=== PATIENT | female | born 1935 | race African-American/Black ===

== ENCOUNTER 2022-12-19 12:10 | Emergency (ER) | payer MEDICARE, BC ==
[~2022-12-19] VITALS: Ht 160 cm; Wt 63.0 kg
[2022-12-19 12:20] VITALS: TEMP 97.3; O2SAT 98
[2022-12-19] MEDS ORDERED: IBUP-2029 MT (13:26)
[2022-12-19 13:45] VITALS: BP 153/94; PULSE 76; RESP 20
[2022-12-19] MEDS ORDERED: IBUPROFEN 600MG TABLET PO ONE (13:45)
== END 2022-12-19 15:08 | disposition home or self-care (01) ==
LOC: ER 12:10
DX: S90.31XA Contusion of right foot, initial encounter (principal); E78.00 Pure hypercholesterolemia, unspecified; I10 Essential (primary) hypertension; Z86.73 Personal history of transient ischemic attack (TIA), and cerebral infarction without residual deficits; X58.XXXA Exposure to other specified factors, initial encounter; Y93.89 Activity, other specified; Y92.89 Other specified places as the place of occurrence of the external cause; Y99.8 Other external cause status
CPT/HCPCS: 99282

== ENCOUNTER 2023-11-24 14:33 | Inpatient (IN) | payer MEDICARE, BC ==
[~2023-11-24] VITALS: Ht 162.6 cm; Wt 76.4 kg
[~2023-11-24 14:33] MED LIST: IBUP-2029 MT
[2023-11-24 14:41] VITALS: O2SAT 99
[2023-11-24] MEDS: SODIUM CHLORIDE 0.9% 1,000 ML IV ONE (15:08)
[2023-11-24 15:17] LABS: BASOPHILS % 0.3 % (0.0-2.0); DIFFERENTIAL COMMENT 0; EOSINOPHILS % 1.5 % (0.0-5.0); HEMATOCRIT. 38.6 % (36.0-48.0); HEMOGLOBIN. 12.5 g/dL (12.0-16.0); LYMPHOCYTES % 22.3 % (20.0-50.0); MEAN CORPUSCULAR HEMOGLOBIN 23.7 pg (28.0-32.0); MEAN CORPUSCULAR HGB CONC 32.4 g/dL (31.0-37.0); MEAN PLATELET VOLUME 8.3 fl (7.4-10.4); MONOCYTES % 11.6 % (2.0-8.0); NEUTROPHILS % 64.3 % (40.0-76.0); PLATELET 313 x1000/uL (130-400); RED BLOOD CELL COUNT 5.29 mill/uL (4.2-5.4); RED CELL DISTRIBUTION WIDTH 17.2 % (11.6-14.6); WHITE BLOOD COUNT 6.5 x1000/uL (4.5-11.0)
[2023-11-24 15:25] LABS: CHLORIDE 102 mEq/L (98-107); POTASSIUM 3.5 mEq/L (3.5-5.1); SODIUM 135 mEq/L (136-145)
[2023-11-24 15:26] LABS: CALCIUM 9.8 mg/dL (8.7-10.4); CARBON DIOXIDE 24 mEq/L (21-32)
[2023-11-24 15:31] LABS: CREATININE 0.7 mg/dL (0.6-1.0); GLUCOSE 100 mg/dL (70-105); UREA NITROGEN BLOOD 8 mg/dL (9-23)
[2023-11-24 15:32] LABS: TROPONIN I HIGH SENSITIVITY 9 ng/L (3.0-34)
[2023-11-24 15:33] LABS: ALANINE AMINOTRANSFERASE 10 IU/L (10-49); ALBUMIN 4.4 g/dL (3.2-4.8); ASPARTATE AMINOTRANSFERASE 26 IU/L (<34); BILIRUBIN TOTAL 0.6 mg/dL (0.1-1.0); PROTEIN TOTAL 8.2 g/dL (6.0-8.3)
[2023-11-24 15:38] LABS: BILIRUBIN DIRECT < 0.1 mg/dL (<=3.0)
[2023-11-24 19:07] VITALS: BP 171/100; PULSE 93; RESP 16; TEMP 98.1
[2023-11-24 19:36] VITALS: BP 146/110; PULSE 96; RESP 17
[2023-11-24 20:00] VITALS: BP 167/101; PULSE 98; RESP 26
[2023-11-24] MEDS ORDERED: AMLO5TAB88 MT (20:25)
[2023-11-24] MEDS ORDERED: ASPI-1406 PO (20:26)
[2023-11-24] MEDS ORDERED: ATOR20TA65 PO (20:32)
[2023-11-24] MEDS ORDERED: CLOP75TA33 PO (20:33)
[2023-11-24] MEDS ORDERED: METO-385 PO (20:35)
[2023-11-24] MEDS ORDERED: ACET-2708 PO (20:37)
[2023-11-24] MEDS ORDERED: LOSA100T33 PO (20:38)
[2023-11-24] MEDS ORDERED: CHOL500010 PO (20:40)
[2023-11-24] MEDS ORDERED: DIPHENHYDRAMINE 50MG/ML VIAL IV PRN (21:15)
[2023-11-24] MEDS ORDERED: ACETAMINOPHEN 325MG TABLET PO PRN (21:15)
[2023-11-24] MEDS ORDERED: ZOLPIDEM TARTRATE 5MG TABLET PO PRN (21:15)
[2023-11-24] MEDS: ONDANSETRON HCL 4MG/2ML INJ IV PRN (22:05)
[2023-11-24 22:09] VITALS: BP 171/94; PULSE 91; RESP 24
[2023-11-24] MEDS: HYDRALAZINE 20MG/ML VIAL IV PRN (22:21)
[2023-11-24] MEDS: SODIUM CHLORIDE 0.9% 3ML FLUSH IVF SCH (22:25)
[2023-11-24] MEDS: DEXAMETHASONE 4MG/ML 1ML VIAL IV SCH (22:25)
[2023-11-24 22:29] VITALS: BP 150/83; PULSE 92; RESP 20
[2023-11-25] VITALS (7 sets, daily range): BP systolic 103–152; BP diastolic 67–98; PULSE 73–101; RESP 12–28; TEMP 97.9–98.4
[2023-11-25] MEDS ORDERED: DEXAMETHASONE 4MG/ML 1ML VIAL IV SCH
[2023-11-25] MEDS: LEVETIRACETAM 500MG PREMIX 100 ML IV SCH (00:58)
[2023-11-25] MEDS: FAMOTIDINE 20MG TABLET PO SCH (08:47)
[2023-11-25] MEDS: LOSARTAN 100 MG TABLET PO SCH (08:47)
[2023-11-25] MEDS: AMLODIPINE 5MG TABLET PO SCH (08:47)
[2023-11-25 08:58] LABS: CLARITY URINE CLEAR (CLEAR); COLOR URINE YELLOW (YELLOW); GLUCOSE URINE NEGATIVE (NEGATIVE); KETONES URINE NEGATIVE (NEGATIVE); LEUKOCYTE ESTERASE URINE NEGATIVE (NEGATIVE); NITRITE URINE NEGATIVE (NEGATIVE); OCCULT BLOOD URINE NEGATIVE (NEGATIVE); PH URINE 7.5 (4.5-8.0); PROTEIN URINE NEGATIVE (NEGATIVE); SPECIFIC GRAVITY URINE 1.009 (1.005-1.030); UROBILINOGEN URINE 0.2 E.U./dL (0.2-1.0)
[2023-11-25] MEDS: GADOTERATE MEGLUMINE 5 MMOL/10 ML VIAL IV ONE (10:06)
[2023-11-25] MEDS: ACETAMINOPHEN 325MG TABLET PO PRN (12:24)
[2023-11-25] MEDS: IOHEXOL-300 100 ML BOTTLE ONE (15:25)
[2023-11-25] MEDS: ENOXAPARIN 60MG/0.6ML SYR SUBCUT NR (16:38)
[2023-11-25 16:57] LABS: PROTHROMBIN TIME 11.2 sec (9.6-11.0)
[2023-11-26] VITALS: BP 152/95; PULSE 99; RESP 28; TEMP 98
[2023-11-26 04:00] VITALS: BP 157/99; PULSE 98; RESP 25; TEMP 97.9
[2023-11-26] MEDS ORDERED: ENOXAPARIN 60MG/0.6ML SYR SUBCUT SCH (06:00)
[2023-11-26 08:00] VITALS: BP 138/82; PULSE 91; RESP 26; TEMP 98
[2023-11-26 12:00] VITALS: BP 140/82; PULSE 92; RESP 30; TEMP 98
[2023-11-26] MEDS ORDERED: BISACODYL 10MG SUPP PR PRN (15:45)
[2023-11-26 16:00] VITALS: BP 143/89; PULSE 93; RESP 26; TEMP 98.5
[2023-11-26 20:00] VITALS: BP 146/91; PULSE 80; RESP 19; TEMP 98.4
[2023-11-26] MEDS: DOCUSATE SODIUM 100MG CAPSULE PO SCH (20:36)
[2023-11-27] VITALS (11 sets, daily range): BP systolic 120–182; BP diastolic 76–103; PULSE 75–96; RESP 16–29; TEMP 97.9–99
[2023-11-27 06:27] LABS: CHLORIDE 100 mEq/L (98-107); POTASSIUM 4.4 mEq/L (3.5-5.1); SODIUM 133 mEq/L (136-145)
[2023-11-27 06:29] LABS: CALCIUM 9.7 mg/dL (8.7-10.4); CARBON DIOXIDE 26 mEq/L (21-32)
[2023-11-27 06:34] LABS: CREATININE 0.8 mg/dL (0.6-1.0); GLUCOSE 146 mg/dL (70-105); UREA NITROGEN BLOOD 17 mg/dL (9-23)
[2023-11-27 06:36] LABS: PROTHROMBIN TIME 10.9 sec (9.6-11.0)
[2023-11-27 06:59] LABS: HEMOGLOBIN. 11.4 g/dL (12.0-16.0); MEAN CORPUSCULAR HEMOGLOBIN 23.3 pg (28.0-32.0); MEAN CORPUSCULAR HGB CONC 32.5 g/dL (31.0-37.0); MEAN CORPUSCULAR VOLUME 71.5 fL (81.0-99.0); MEAN PLATELET VOLUME 9.1 fl (7.4-10.4); PLATELET 295 x1000/uL (130-400); RED CELL DISTRIBUTION WIDTH 16.8 % (11.6-14.6); WHITE BLOOD COUNT 14.7 x1000/uL (4.5-11.0)
[2023-11-27] MEDS ORDERED: LIDOCAINE HCL 1% 10 MG/ML 10ML VIAL ONE (07:32)
[2023-11-27] MEDS ORDERED: IOHEXOL-300 100 ML BOTTLE ONE (07:33)
[2023-11-27] MEDS ORDERED: CEFAZOLIN 1000MG PREMIX 50 ML IV ONE (07:36)
[2023-11-27] MEDS: CEFAZOLIN 1000MG PREMIX 50 ML IV ONE (08:05)
[2023-11-27 08:20] LABS: DIFFERENTIAL COMMENT 1
[2023-11-27 14:17] LABS: ANISOCYTOSIS 2+; MICROCYTOSIS 1+; OVALOCYTES 1+; PLATELET ESTIMATE NORMAL
[2023-11-27] MEDS: DEXAMETHASONE 6MG TABLET PO SCH (17:19)
[2023-11-28] VITALS: BP 160/99; PULSE 71; RESP 22; TEMP 98
[2023-11-28 04:00] VITALS: BP 167/95; PULSE 83; RESP 24; TEMP 98.1
[2023-11-28 08:00] VITALS: BP 135/81; RESP 24; TEMP 98.2
[2023-11-28 12:00] VITALS: BP 154/105; PULSE 68; RESP 20; TEMP 98
[2023-11-28 16:00] VITALS: BP 140/80; PULSE 71; RESP 22; TEMP 98
[2023-11-28] MEDS: MAGNESIUM HYDROXIDE 400MG/5ML 30ML UDC PO PRN (17:43)
[2023-11-28 20:00] VITALS: BP 147/90; PULSE 95; RESP 24; TEMP 98.3
[2023-11-29] VITALS: BP 148/89; PULSE 84; RESP 24; TEMP 98
[2023-11-29 04:00] VITALS: BP 149/84; PULSE 78; RESP 20; TEMP 98.4
[2023-11-29 06:55] LABS: BASOPHILS % 0.1 % (0.0-2.0); DIFFERENTIAL COMMENT 0; HEMATOCRIT. 36.9 % (36.0-48.0); HEMOGLOBIN. 11.9 g/dL (12.0-16.0); LYMPHOCYTES % 8.6 % (20.0-50.0); MEAN CORPUSCULAR HEMOGLOBIN 23.3 pg (28.0-32.0); MEAN CORPUSCULAR HGB CONC 32.3 g/dL (31.0-37.0); MEAN CORPUSCULAR VOLUME 72.1 fL (81.0-99.0); MEAN PLATELET VOLUME 8.6 fl (7.4-10.4); MONOCYTES % 6.2 % (2.0-8.0); NEUTROPHILS % 85.1 % (40.0-76.0); PLATELET 280 x1000/uL (130-400); RED BLOOD CELL COUNT 5.12 mill/uL (4.2-5.4); RED CELL DISTRIBUTION WIDTH 16.6 % (11.6-14.6); WHITE BLOOD COUNT 10.2 x1000/uL (4.5-11.0)
[2023-11-29 07:08] LABS: CALCIUM 9.1 mg/dL (8.7-10.4); CARBON DIOXIDE 25 mEq/L (21-32); CHLORIDE 100 mEq/L (98-107); POTASSIUM 4.6 mEq/L (3.5-5.1); SODIUM 131 mEq/L (136-145)
[2023-11-29 07:09] LABS: TROPONIN I HIGH SENSITIVITY 8 ng/L (3.0-34)
[2023-11-29 07:11] LABS: CREATININE 0.6 mg/dL (0.6-1.0)
[2023-11-29 07:14] LABS: GLUCOSE 130 mg/dL (70-105); UREA NITROGEN BLOOD 14 mg/dL (9-23)
[2023-11-29 08:00] VITALS: BP 149/85; PULSE 84; RESP 20; TEMP 98.3
[2023-11-29 12:00] VITALS: BP 156/84; PULSE 85; TEMP 98
[2023-11-29] MEDS: AMLODIPINE 5MG TABLET PO NR (15:10)
[2023-11-29] MEDS: NA PHOS,M-B/NA PHOS,DI-BA ENEMA 118ML PR NR (15:10)
[2023-11-29 16:00] VITALS: BP 160/96; PULSE 83; RESP 20; TEMP 98.2
[2023-11-29] MEDS: CLONIDINE 0.1MG TABLET PO PRN (17:07)
[2023-11-29 20:00] VITALS: BP 135/73; PULSE 84; RESP 20; TEMP 97.9
[2023-11-30] VITALS (14 sets, daily range): BP systolic 125–155; BP diastolic 75–93; PULSE 75–96; RESP 18–24; TEMP 97.1–98.6
[2023-11-30 08:12] LABS: T4 FREE 1.37 ng/dL (0.89-1.76)
[2023-11-30 08:13] LABS: THYROID STIMULATING HORMONE 0.27 uIU/mL (0.55-4.78)
[2023-11-30 08:48] LABS: VITAMIN B12 SERUM 509 pg/mL (211-911)
[2023-11-30] MEDS: AMLODIPINE 10MG TABLET PO SCH (08:49)
[2023-11-30] MEDS ORDERED: LIDOCAINE HCL 1% 10 MG/ML 10ML VIAL ONE (09:51)
[2023-11-30] MEDS ORDERED: FENTANYL CITRATE/PF 50MCG/ML 2ML VIAL ONE (09:52)
[2023-11-30] MEDS: FENTANYL CITRATE/PF 50MCG/ML 2ML VIAL IV ONE (11:35)
[2023-11-30 14:25] LABS: BG BASE EXCESS 3.5 mmol/L (-2.0-2.0); BG CARBOXYHEMOGLOBIN 0.4 % (0.5-1.5); BG DEOXYHEMOGLOBIN 7.6 % (0.0-5.0); BG FRACTION INSPIRED OXYGEN 21; BG HCO3 ACT 27.1 mmol/L (22.0-26.0); BG METHEMOGLOBIN 0.1 % (0.0-1.5); BG OXYGEN SATURATION 92.4 % (92.0-98.5); BG OXYHEMOGLOBIN 91.9 % (94.0-97.0); BG PCO2 37.6 mmHg (35.0-45.0); BG PH 7.475 (7.350-7.450); BG PO2 58.5 mmHg (75.0-100.0); BG TOTAL HEMOGLOBIN 13.6 g/dL (12.0-18.0); BG VENT MODE ROOM AIR
[2023-11-30] MEDS ORDERED: HYDRALAZINE 10 MG in SODIUM CHLORIDE 0.9% 49.5 ML IV PRN (18:15)
[2023-11-30] MEDS: DEXAMETHASONE 6MG TABLET PO SCH (21:28)
[2023-12-01] VITALS: BP 160/93; PULSE 82; RESP 18; TEMP 97.3
[2023-12-01 08:00] VITALS: BP 159/97; PULSE 82; RESP 19; TEMP 98
[2023-12-01] MEDS: METOPROLOL TARTRATE 50MG TABLET PO SCH (10:00)
[2023-12-01 12:00] VITALS: BP 130/71; PULSE 87; RESP 19; TEMP 98.7
[2023-12-01] MEDS ORDERED: DEXAMETHASONE 4MG TABLET PO SCH (14:00)
== END 2023-12-01 17:30 | disposition home health service (06) | DRG 180 ==
LOC: ER 14:33 → 3WST 16:52 → EDBEDREQTM 16:54 → EDBEDREQ 16:54 → 6WST 11-30 17:22
PROVIDERS: ADMIT Internal Medicine; ATTEND Internal Medicine
PROC: 06H03DZ Insertion of Intraluminal Device into Inferior Vena Cava, Percutaneous Approach (ICD-10-PCS; principal; 2023-11-27)
PROC: 4A10X4Z Monitoring of Central Nervous Electrical Activity, External Approach (ICD-10-PCS; 2023-11-29)
PROC: 0B9L3ZX Drainage of Left Lung, Percutaneous Approach, Diagnostic (ICD-10-PCS; 2023-11-30)
DX: C34.12 Malignant neoplasm of upper lobe, left bronchus or lung (principal); G93.6 Cerebral edema; I82.411 Acute embolism and thrombosis of right femoral vein; C79.31 Secondary malignant neoplasm of brain; R07.89 Other chest pain; I10 Essential (primary) hypertension; R44.1 Visual hallucinations; E78.00 Pure hypercholesterolemia, unspecified; Z86.16 Personal history of COVID-19; Z79.02 Long term (current) use of antithrombotics/antiplatelets; Z79.82 Long term (current) use of aspirin; Z79.899 Other long term (current) drug therapy; Z86.73 Personal history of transient ischemic attack (TIA), and cerebral infarction without residual deficits; Z87.891 Personal history of nicotine dependence; Z91.048 Other nonmedicinal substance allergy status; Z95.828 Presence of other vascular implants and grafts
CPT/HCPCS: 32408; 36415; 36600; 37191; 70553; 71045; 71260; 80048; 80076; 81003; 82375; 82607; 82805; 84439; 84443; 84481; 84484; 85025; 88305; 93005; 93306; 93970; 95816; 97162; 99152; 99153; 99285; A9577; C1769; C1880; C1893; J0360; J0690; J1100; J1644; J1650; J1953; J2405; J3010; J3490; Q9967; G0500